=== PATIENT | female | born 1980 | race African-American/Black ===

== ENCOUNTER 2021-05-01 16:55 | Emergency (ER) | payer OTHER, SELFPAY ==
--- NOTE | ~2021-05-01 | CT_ITS ---
EXAMINATION: CT HEAD WITHOUT CONTRAST CT CERVICAL SPINE WITHOUT CONTRAST CLINICAL INFORMATION: Trauma. Pain. COMPARISON: None. TECHNIQUE: Imaging was performed from the skull base to vertex without intravenous administration of contrast. In addition, helical noncontrast CT imaging was acquired through the cervical spine and source images were reviewed along with axial reconstructions and sagittal and coronal MPRs. [This CT examination was performed using dose optimization techniques as appropriate, variously including the following: *Automated exposure control *Adjustment of mA and/or kV according to patient size (this includes techniques or standardized protocols for targeted exams where dose is matched to indication/reason for exam; i.e. extremities or head) *Use of iterative reconstruction technique] DLP: 1987 mGy-cm FINDINGS: HEAD: No intracranial mass, hemorrhage, or midline shift is visualized. The ventricles and sulci are proportional. No extra-axial collections are identified. There is sinus mucosal thickening in the ethmoid sinuses and maxillary sinuses bilateral. The mastoid air cells and middle ear cavities are normally aerated. CERVICAL SPINE: There is no evidence of acute cervical spine fracture. Vertebral bodies remain normal in height. Cervical vertebrae have normal alignment. There is multilevel degenerative spondylosis of the cervical spine with disc height narrowing and endplate spurs and facet joint arthrosis No pre- or paravertebral soft tissue abnormality is identified. Limited assessment of the lung apices is unremarkable. CT/CT head/brain wo con IMPRESSION: 1. No acute intracranial pathology. 2. No CT evidence of acute cervical spine fracture or traumatic subluxation
--- NOTE | ~2021-05-01 | XR_ITS ---
EXAMINATION: XR RIBS, BILATERAL CLINICAL INFORMATION: Trauma with rib pain COMPARISON: None TECHNIQUE: 4 views of the bilateral ribs and chest were obtained. FINDINGS: Lungs are clear. No consolidation, pneumothorax, or pleural effusion. The cardiomediastinal silhouette and pulmonary vasculature are normal. Osseous structures are unremarkable. Ribs are intact. No fractures are identified. XR/XR ribs BI min 4V w CXR1V IMPRESSION: Unremarkable examination.
--- NOTE | ~2021-05-01 | CT_ITS ---
EXAMINATION: CT HEAD WITHOUT CONTRAST CT CERVICAL SPINE WITHOUT CONTRAST CLINICAL INFORMATION: Trauma. Pain. COMPARISON: None. TECHNIQUE: Imaging was performed from the skull base to vertex without intravenous administration of contrast. In addition, helical noncontrast CT imaging was acquired through the cervical spine and source images were reviewed along with axial reconstructions and sagittal and coronal MPRs. [This CT examination was performed using dose optimization techniques as appropriate, variously including the following: *Automated exposure control *Adjustment of mA and/or kV according to patient size (this includes techniques or standardized protocols for targeted exams where dose is matched to indication/reason for exam; i.e. extremities or head) *Use of iterative reconstruction technique] DLP: 1987 mGy-cm FINDINGS: HEAD: No intracranial mass, hemorrhage, or midline shift is visualized. The ventricles and sulci are proportional. No extra-axial collections are identified. There is sinus mucosal thickening in the ethmoid sinuses and maxillary sinuses bilateral. The mastoid air cells and middle ear cavities are normally aerated. CERVICAL SPINE: There is no evidence of acute cervical spine fracture. Vertebral bodies remain normal in height. Cervical vertebrae have normal alignment. There is multilevel degenerative spondylosis of the cervical spine with disc height narrowing and endplate spurs and facet joint arthrosis No pre- or paravertebral soft tissue abnormality is identified. Limited assessment of the lung apices is unremarkable. CT/CT cervical spine wo con IMPRESSION: 1. No acute intracranial pathology. 2. No CT evidence of acute cervical spine fracture or traumatic subluxation
[2021-05-01 17:57] VITALS: BP 123/72; PULSE 82; RESP 18; TEMP 36.7; O2SAT 100; BMI 39.9
--- NOTE | 2021-05-01 22:28 | PC.NURSE ---
Patient sleeping at this time. Awaiting results from imaging. Pt was laughing and talking on the phone with friends/family prior to sleeping.
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
== END 2021-05-01 23:11 | disposition home or self-care (01) ==
PROVIDERS: Emergency Provider Emergency Medicine
DX: S06.0X0A Concussion without loss of consciousness, initial encounter (principal); Y04.2XXA Assault by strike against or bumped into by another person, initial encounter; M54.2 Cervicalgia; Y93.9 Activity, unspecified; Y92.59 Other trade areas as the place of occurrence of the external cause; Y99.9 Unspecified external cause status
CPT/HCPCS: 70450; 71111; 72125; 99283; 99284

== ENCOUNTER 2021-06-26 21:34 | Emergency (ER) | payer OTHER, SELFPAY ==
--- NOTE | ~2021-06-26 | XR_ITS ---
EXAMINATION: XR KNEE, LEFT CLINICAL INFORMATION: Pain. Difficulty weightbearing. COMPARISON: None TECHNIQUE: Four views of the left knee. FINDINGS: No visible acute fracture or dislocation. Alignment is anatomic. Joint spaces are well maintained. Small effusion. No abnormal soft tissue calcification. XR/XR knee LT 3V IMPRESSION: No evidence of acute fracture or dislocation.
[2021-06-26 22:10] VITALS: BP 198/112; PULSE 111; RESP 18; TEMP 36.3; O2SAT 100; BMI 42.7
[2021-06-27 00:09] VITALS: BP 140/90; PULSE 88; RESP 18; O2SAT 96
--- NOTE | 2021-06-27 00:22 | PC.NURSE ---
PT RESTING IN BED SKIN PWD RESPIRATIONS EVEN UNLABORED, A&Ox4, REPORTS CONTINUED LEFT KNEE PAIN WORSE UPON AMBULATION. XRAY RESULTS RECEIVED, AWAITING MD WAGNER. AWARE OF PLAN OF CARE.
--- NOTE | 2021-06-27 01:08 | ED.LOWEXIN ---
HPI - Extremity Injury (Lower) General Chief Complaint: Extremity Injury, Lower Stated Complaint: knee pain Time Seen by Provider: 06/27/21 01:05 Source: patient Mode of arrival: ambulatory Limitations: no limitations History of Present Illness HPI Narrative: Patient with history of arthritis heard a pop on left knee yesterday while walking since then complaining of increased pain in the with slight swelling history of same in the past off and on Related Data Previous Rx's Medication Instructions Recorded cyclobenzaprine 10 mg tablet 10 mg PO TID PRN #10 tab 05/01/21 ibuprofen 600 mg tablet 600 mg PO Q8H PRN #20 tab 05/01/21 ibuprofen 600 mg tablet 600 mg PO Q6H PRN #20 tab 06/27/21 Allergies Allergy/AdvReac Type Severity Reaction Status Date / Time No Known Allergies Allergy Verified 05/01/21 21:50 Review of Systems Review of Systems: Yes all other systems are reviewed and are negative PMFSH Past Medical History Medical History Anxiety Asthma delivery delivered Cholecystectomy planned Depression HTN (hypertension) Social History Social History Advance Directives: No Advance Directives Information Provided: Yes Patient : No Physical Exam Vital Signs: Vital Signs: Last Vital Signs Temp 97.4 F 06/26/21 22:10 Pulse 88 06/27/21 00:09 Resp 18 06/27/21 00:09 BP 140/90 H 06/27/21 00:09 Pulse Ox 96 06/27/21 00:09 Body Mass Index 42.7 Const: General: comfortable and no acute distress HENMT: Head: Yes normocephalic and Yes atraumatic Resp: Effort & Inspection: normal respiratory effort Auscultation: clear to auscultation bilaterally Cardio: Rate: regular rate Rhythm: regular rhythm Heart sounds: S1 normal heart sound present and S2 normal heart sound present Extrem: Knee images: 1. Lateral joint line tenderness no effusion good range of movement MDM - Extremity Injury (Lower) MDM Narrative Medical decision making narrative: Patient with left lateral collateral knee ligament strain likely the cause of the pain anterior drawer sign and Zachariah sign were negative, Micah wrap was applied patient is able to ambulate advise not to strain of the knees know not to go upstairs or downstairs Discharge Plan Discharge Clinical Impression: Knee pain, left Qualifiers: Chronicity: acute Qualified Code(s): M25.562 - Pain in left knee Patient Disposition: Home, Self-Care Instructions: Knee Pain (ED) Additional Instructions: Rest to the knee Apply Micah wrap Ibuprofen for pain Prescriptions: New ibuprofen 600 mg tablet 600 mg PO Q6H PRN (Reason: pain) Qty: 20 RF: 0 No Action cyclobenzaprine 10 mg tablet 10 mg PO TID PRN (Reason: muscle spasm) Qty: 10 RF: 0 ibuprofen 600 mg tablet 600 mg PO Q8H PRN (Reason: pain) Qty: 20 RF: 0
[2021-06-27] MEDS: Ibuprofen 600 MG TABLET PO (01:17)
== END 2021-06-27 01:24 | disposition home or self-care (01) ==
PROVIDERS: Emergency Provider Internal Medicine
DX: M25.562 Pain in left knee (principal); Z79.899 Other long term (current) drug therapy
CPT/HCPCS: 73562; 99283; 99284

== ENCOUNTER 2022-07-09 20:19 | Emergency (ER) | payer OTHER, SELFPAY ==
[2022-07-09 21:52] VITALS: BP 143/88; PULSE 100; RESP 16; TEMP 36.7; O2SAT 99; BMI 40.7
--- NOTE | 2022-07-10 00:29 | ED_ITS ---
HPI - Back Pain/Injury General Chief Complaint: Back Pain/Injury Stated Complaint: knee and back pain from fall Time Seen by Provider: 07/10/22 00:16 Source: patient Mode of arrival: ambulatory Limitations: no limitations History of Present Illness HPI Narrative: Patient comes to the emergency room complaining of left knee pain and left sided back pain that started 2 days ago after she fell. Patient has already been evaluated at [facility], patient had x-rays, states that she was told she has a knee sprain. The reason she came back to the hospital today is because now she is having back pain. Patient states it is on the left side, hurts with sitting and standing. Denies URI or UTI symptoms. No coughing. Related Data Previous Rx's Medication Instructions Recorded cyclobenzaprine 10 mg tablet 10 mg PO TID PRN muscle spasm #10 05/01/21 tabs ibuprofen 600 mg tablet 600 mg PO Q8H PRN pain #20 tabs 05/01/21 ibuprofen 600 mg tablet 600 mg PO Q6H PRN pain #20 tabs 06/27/21 cyclobenzaprine 10 mg tablet 10 mg PO TID PRN muscle spasm #10 07/10/22 tabs ketorolac 10 mg tablet 10 mg PO TID PRN pain 5 days #10 07/10/22 tabs Allergies Allergy/AdvReac Type Severity Reaction Status Date / Time No Known Allergies Allergy Verified 05/01/21 21:50 Review of Systems Review of Systems: Constitutional : No Weight loss, No Fever, No Chills, No Night Sweats, No Fatigue, No Malaise ENT/Mouth : No Hearing loss, No Ear Pain, No Nasal Congestion, No Sinus Pain, No Hoarseness, No sore throat, No Rhinorrhea, No Swallowing Difficulty Eyes: No Eye Pain, No Swelling, No Redness, No Foreign Body, No Discharge, No Vision Changes Cardiovascular : No Chest Pain, No SOB, No Dyspnea on Exertion, No Orthopnea, No Edema, No Palpitations Respiratory : No Cough, No Sputum, No Wheezing, No Smoke Exposure, No Dyspnea Gastrointestinal : No Nausea, No Vomiting, No Diarrhea, No Constipation, No abdominal Pain, No Hematochezia, No Melena Genitourinary : no irregular bleeding, No Dysuria, No Urinary Frequency, No Juan turia, No Urinary Incontinence, No Urgency, No Flank Pain, No Urinary Flow Changes, No Hesitancy Musculoskeletal : Complaining of acute on chronic left knee pain and midthoracic back pain on the left side Skin : No Skin Lesions, No rash Neuro : No Weakness, No Numbness, No Paresthesias, No Loss of Consciousness, No Dizziness, No Headache Psych : No Anxiety/Panic, No Depression, No SI/HI/AH/VH, No Social Issues, Heme/Lymph: No Bruising, No Bleeding,No Lymphadenopathy Endocrine : No Polyuria, No Polydipsia, No Temperature Intolerance [facility] Past Medical History Medical History Anxiety Asthma delivery delivered Cholecystectomy planned Depression HTN (hypertension) Physical Exam Vital Signs: Vital Signs: Last Vital Signs Temp 98.1 F 07/09/22 21:52 Pulse 100 07/09/22 21:52 Resp 16 07/09/22 21:52 BP 143/88 H 07/09/22 21:52 Pulse Ox 99 07/09/22 21:52 O2 Del Method 07/09/22 21:52 BMI result Body Mass Index 40.7 Const: Other: Appearance: Alert. Oriented X3. No acute distress. Eyes: Pupils equal, round and reactive to light. ENT: Pharynx normal. Neck: Normal inspection. Neck supple. No lymph nodes noted. No crepitus CVS: Normal heart rate and rhythm. Pulses normal. Normal S1 and S2 Respiratory: No respiratory distress. Breath sounds normal. No Wheezing. No rales Abdomen: Soft and nontender. No rigidity. No distention. Back: No cervical/thoracic/lumbar spine tenderness, pain to palpation over the paraspinal muscles, palpable muscle spasms. Skin: Skin warm and dry. Normal skin color. Normal skin turgor. Extremities: No lower extremity edema. Patient able to walk within normal limits. Able to flex and extend the knee. Neuro: Oriented X 3. No motor deficit. No sensory deficit. Moving all extremities. No slurred speech. CN 2 through 12 grossly intact Psych: calm, cooperative, normal affect Course Course Course Narrative: Patient was already evaluated by [facility] for knee pain. Patient does not want to have repeat x-rays. Imaging for the back is not indicated at this time. Patient given 1 dose of IM Toradol and cyclobenzaprine P Discharge Plan Discharge Clinical Impression: Paraspinal muscle spasm Patient Disposition: Home, Self-Care Instructions: Muscle Spasm (ED) Additional Instructions: Please follow-up with your primary care physician tomorrow. If you have any worsening or new symptoms, please return to the emergency room or call 911 Prescriptions: New cyclobenzaprine 10 mg tablet 10 mg PO TID PRN (Reason: muscle spasm) Qty: 10 0RF ketorolac 10 mg tablet 10 mg PO TID PRN (Reason: pain) 5 Days Qty: 10 0RF Rx Instructions: Do not use this medication with NSAIDs/Aleve/naproxen, only Tylenol if needed No Action cyclobenzaprine 10 mg tablet 10 mg PO TID PRN (Reason: muscle spasm) Qty: 10 0RF ibuprofen 600 mg tablet 600 mg PO Q8H PRN (Reason: pain) Qty: 20 0RF ibuprofen 600 mg tablet 600 mg PO Q6H PRN (Reason: pain) Qty: 20 0RF
[2022-07-10] MEDS: Cyclobenzaprine HCl 10 MG TABLET PO (00:56)
[2022-07-10] MEDS: Ketorolac Tromethamine 60 MG/2 ML VIAL IM (00:56)
== END 2022-07-10 02:26 | disposition home or self-care (01) ==
PROVIDERS: Emergency Provider Emergency Medicine
DX: M62.830 Muscle spasm of back (principal); G89.29 Other chronic pain; M25.562 Pain in left knee; I10 Essential (primary) hypertension
CPT/HCPCS: 96372; 99282; 99283; 99284; J1885